=== PATIENT | male | born 1995 ===

== ENCOUNTER 2017-02-18 04:16 | Observation (INO) | payer OTHER ==
[2017-02-18] VITALS (14 sets, daily range): BP systolic 99–121; BP diastolic 39–67; PULSE 50–79; TEMP 97.8–98.5
[~2017-02-18] VITALS: Ht 180.3 cm; Wt 95.5 kg
[2017-02-18] MEDS ORDERED: NORCO 325 MG-7.1 TAB PO (16:54)
== END 2017-02-18 17:35 | disposition home or self-care (01) ==
LOC: SURG 04:16
DX: K35.80 Unspecified acute appendicitis (principal); K21.9 Gastro-esophageal reflux disease without esophagitis
CPT/HCPCS: J0694; J1100; J1885; J2270; J2405; J2704; J2710; J2765; J3010; J7120